=== PATIENT | female | born 1980 | race Caucasian/White ===

== ENCOUNTER → 2018-05-06 | Outpatient (CLI) | payer OTHER, SELFPAY ==
[2018-05-07 14:40] LABS: Chlamydia Trachomatis by PCR Negative (Negative); Neisserai gonorrhoeae by PCR Negative (Negative); Probe Check PASS; Sample Adequacy Control PASS; Specimen Processing Control PASS
[2018-05-10 12:34] LABS: HPV Reflexed? NOT INDICATED
== END | disposition home or self-care (01) ==
LOC: LABSPEC 05-07 09:35
PROVIDERS: Visit Provider Obstetrics & Gynecology
DX: Z12.4 Encounter for screening for malignant neoplasm of cervix (principal); Z11.3 Encounter for screening for infections with a predominantly sexual mode of transmission
CPT/HCPCS: 87491; 87591; 88175; G0145

== ENCOUNTER 2024-12-21 10:54 | Inpatient (IN) | payer OTHER, SELFPAY ==
[2024-12-21] VITALS (15 sets, daily range): BP systolic 169–224; BP diastolic 73–91; PULSE 75–105; RESP 12–24; TEMP 36.6–37.1; O2SAT 90–96; BMI 40.4
--- NOTE | 2024-12-21 11:26 | EKG12_ITS ---
Test Reason : SOB Blood Pressure : */* mmHG Vent. Rate : 106 BPM Atrial Rate : 106 BPM P-R Int : 166 ms QRS Dur : 86 ms QT Int : 352 ms P-R-T Axes : 60 64 -24 degrees QTcB Int : [address] & T wave abnormality, consider inferior ischemia Abnormal ECG Confirmed by Maco Platt ([id number]), fan mail editor PALOMO TORRES ([id number]) on 12/22/2024 10:51:23 AM Referred By: Confirmed By: Maco Platt
--- NOTE | 2024-12-21 11:26 | RAD_ITS ---
EXAM: XR Chest, 2 Views CLINICAL INDICATION: TECHNIQUE: Frontal and lateral views of the chest. COMPARISON: No relevant prior studies available. FINDINGS: LUNGS AND PLEURAL SPACES: Right middle lobe and lingula atelectasis or pneumonia. No pneumothorax. HEART: Unremarkable. No cardiomegaly. MEDIASTINUM: Unremarkable. Normal mediastinal contour. BONES/JOINTS: Unremarkable. No acute fracture. RAD/Chest PA and Lateral IMPRESSION: Right middle lobe and lingula atelectasis or pneumonia. Reading [facility] [place]
--- NOTE | 2024-12-21 11:27 | ED.VIS.DYS ---
HPI History of Present Illness Chief Complaint: Shortness of Breath Detail of Chief Complaint: Shortness of breath Informant: patient Narrative Narrative: Patient presents the emergency department complaint of shortness of breath and cough x 5 days. She was seen at urgent care where she was given a breathing treatment and had a chest x-ray and was told that she had some fluid on her lung and to come to the emergency department. Patient does not have a diagnosed history of CHF or coronary artery disease. She states that she knows she has high blood pressure but does not take any medications. She does complain of frequent exertional dyspnea. She denies recent travel or surgery. She denies any weight gain. Denies significant edema in her legs. Patient tells me she has had subjective fever at home. Cough is mostly nonproductive [facility] Medical History (Updated 12/21/24 @ 14:[address] Reese Montes DO) Cyst Home Medications ?Medication ?Instructions ?Recorded ?Last Taken ?Type thyro lf 1 - 2 cap PO DAILY THYROID 12/21/24 Unknown History SUPPLEMENT Allergy/AdvReac Type Severity Reaction Status Date / Time Penicillins AdvReac Severe Swelling Verified 12/21/24 08:58 Social History Smoking Status: Never smoker ROS ROS ED Review of Systems ROS Unobtainable: other Constitutional Constitutional ED: Reports lethargy; Denies chills, fever(s), sweats or weight loss Eyes Eyes: Denies blurry vision, change in vision or diplopia ENT ENT ED: Denies rhinorrhea or sore throat Cardiovascular Cardiovascular: Denies chest pain, orthopnea or racing heartbeat Respiratory/Chest Respiratory/Chest: Reports cough, dyspnea and dyspnea on exertion; Denies orthopnea or sputum Gastrointestinal Gastrointestinal: Denies abdominal pain, diarrhea, nausea or vomiting Genitourinary Genitourinary ED: Denies dysuria, hematuria or urinary frequency Musculoskeletal Musculoskeletal: Denies arthralgias, back pain, myalgias or neck pain Integumentary Denies abscess, Abrasions or rash Neurologic Neurologic: Denies headache(s) or weakness Psychiatric Psychiatric: Denies anxiety, depression or suicidal thoughts Endocrine Endocrinology: Denies polydipsia, polyphagia or polyuria Hematologic/Lymphatic Hematologic/Lymphatic: Denies easy bleeding, easy bruising or lymphadenopathy Allergic/Immunologic Allergic/Immunologic ED: Denies mouth swelling, tongue swelling or urticaria EXAM Physical Exam Const Vital Signs: 12/21/24 10:55 12/21/24 10:57 12/21/24 11:08 Temperature 98 F 98 F Temperature Source Temporal Oral Pulse Rate 105 H 105 H Respiratory Rate 20 H 19 H Respiratory Effort Short of Breath Blood Pressure 224/91 H 224/91 H Blood Pressure Mean 135 135 Pulse Ox 90 90 Oxygen Delivery Method Room Air Room Air Room Air Oxygen Flow Rate (L/min) 12/21/24 11:21 12/21/24 11:49 12/21/24 11:58 Temperature 98 F Temperature Source Oral Pulse Rate 96 92 Respiratory Rate 12 Respiratory Effort Blood Pressure 191/91 H 205/86 H Blood Pressure Mean 124 125 Pulse Ox 90 94 Oxygen Delivery Method Room Air Room Air Nasal Cannula Oxygen Flow Rate (L/min) 2 12/21/24 11:58 12/21/24 12:50 12/21/24 13:00 Temperature 98 F Temperature Source Oral Pulse Rate 83 Respiratory Rate 24 H Respiratory Effort Blood Pressure 205/86 H 182/85 H 183/84 H Blood Pressure Mean 125 117 117 Pulse Ox 95 Oxygen Delivery Method Nasal Cannula Oxygen Flow Rate (L/min) 3 Positive well nourished and well developed General Appearance ED: well developed and NAD HEENT Reports TM's clear and moist mucous membranes normocephalic and atraumatic; Negative for trauma or tenderness Tympanic Membrane ED: Yes TM's clear Eyes PERRL and EOMs intact bilaterally General Eye ED: Negative for pale conjunctiva or scleral icterus Neck no lymphadenopathy, supple and no JVD General: Negative for tenderness Chest Wall inspection of chest normal and palpation of chest normal Chest: Negative for tenderness Resp normal respiratory effort and clear to auscultation bilaterally Resp Narrative: Occasional coarse rhonchi left lower lobe and upper lobe. No conversational dyspnea. No accessory muscle use or retractions. Effort and Inspection: Negative for respiratory distress or pain with movement Auscultation: Negative for rhonchi, wheezes or diminished lung sounds Cardio regular rate, regular rhythm, S1 normal heart sound, S2 normal heart sound and no murmurs Peripheral Pulses: pulses 2+ throughout GI normal to inspection, nondistended, normoactive bowel sounds, soft to palpation, non-tender, non-distended and no masses Back/Spine no CVA tenderness and no thoracic nor lumbar tenderness Extremity normal to inspection General Extremety ED: Negative for edema General Extremity: Negative for edema Neuro oriented x3, CN's II-XII intact bilaterally, no sensory deficits noted and gait normal Sensorium / Orientation: awake, alert, oriented to person, oriented to place and oriented to time Motor Exam: strength 5/5 throughout and strength abnormal Psych mental status grossly normal Skin no rashes or lesions noted and no wounds MDM MDM MDM Narrative Medical decision making narrative: Patient presents to the emergency department shortness of breath for the last 5 days with cough and fever. Seen at urgent care and referred to the emergency department for concern about CHF possibly. Clinically suspect infectious etiology such as pneumonia versus viral etiology. She was hypoxic on arrival. Did have some wheezing. Patient was placed on nasal cannula O2 after she ambulated she was 87% on room air initially. Patient also found to be hypertensive and received labetalol IV. 20 mg. Blood cultures ordered. COVID flu and RSV testing was negative. CBC with differential showed a white count of 9.1 with hemoglobin 8.9 and platelet count of 298. Chemistries unremarkable. D-dimer elevated 2.25. Troponin normal at 11. BT [employer] was normal at 312. CTA of the chest obtained was negative for PE or dissection. She did have bilateral infiltrates. At this point patient was started on Levaquin IV. Case will be discussed with hospitalist to evaluate patient for admission Lab Data Attestation: I reviewed the patient's lab results. Labs: Laboratory Results - last 24 hr 12/21/24 12/21/24 12/21/24 11:15 11:35 13:30 WBC 9.1 RBC 4.40 Hgb 8.9 L Hct 30.1 L MCV 68.4 L MCH 20.2 L MCHC 29.6 L RDW Std Deviation 46.5 H RDW Coeff of Jatin 19.2 H Plt Count 298 MPV 9.9 Immature Gran % (Auto) 1.100 H Neut % (Auto) 67.0 Lymph % (Auto) 17.3 L Bland % (Auto) 12.4 H Eos % (Auto) 1.3 Baso % (Auto) 0.9 Absolute Neuts (auto) 6.1 Absolute Lymphs (auto) 1.57 Nucleated RBC % 0.2 D-Dimer Quant (PE/DVT) 2.25 H* Sodium 142 Potassium 2.8 L Chloride 102 Carbon Dioxide 25.2 Anion Gap 14 BUN 7 Creatinine 0.60 L Estim Creat Clear Calc 134.63 Est GFR (MDRD) Non-Af 112 BUN/Creatinine Ratio 12.0 Glucose 131 H Lactic Acid 1.2 Calcium 8.9 Troponin T High Sens 11 Troponin T Hi Sens 2 Hr 13 NT pro BNP II 312 Radiography Chest X-Ray - ED: 1 View Diagnostic Testin view chest x-ray obtained interpreted by myself as increased markings in the right lower lobe and left lower lobe suspect infiltrates. Official report from radiology pending. EKG Initial EKG: Attestation: I personally reviewed and interpreted this EKG as follows: Comments: Sinus rhythm with ventricular rate of [address] changes noted inferior and laterally. Discharge Plan Dx/Rx/DC Orders Clinical Impression: Pneumonia, Hypertension, Respiratory failure, Hypoxemia Disposition Disposition: Acute Care Hospital [facility]
[2024-12-21 11:35] LABS: Absolute Lymphocyte Count 1.57 X10^3/uL (0.83-4.51); Absolute Neutrophil Count 6.1 X10^3/uL (2.0-7.7); Basophil# 0.08 X10^3/uL; Basophil% 0.9 % (0-1); Eosinophil# 0.12 X10^3/uL; Eosinophils% 1.3 % (0-5); Hematocrit 30.1 % (37-47); Hemoglobin 8.9 g/dL (12.0-15.0); Lymphocyte # 1.57 X10^3/ul (0.83-4.51); Lymphocyte % 17.3 % (19-41); Mean Corp Hgb Conc 29.6 g/dL (32-36); Mean Corpuscular Hgb 20.2 pg (27.0-32.0); Mean Corpuscular Volume 68.4 fL (81-99); Mean Platelet Vol. 9.9 fl (6.2-12.0); Monocyte# 1.13 X10^3/uL; Monocyte% 12.4 % (0-10); NRBC Flagged by Analyzer 0.2 % (0-5); Neutrophil # 6.09 X10^3/uL (2.7-7.7); Platelet Count 298 K/mm3 (150-450); RBC Distribution Width CV 19.2 % (11.6-14.6); RBC Distribution Width SD 46.5 fl (35.1-43.9); White Blood Count 9.1 K/mm3 (4.4-11.0)
[2024-12-21 11:58] LABS: D-Dimer Quantitative (DVT/PE) 2.25 FEU/ug/m (0.27-0.49)
--- NOTE | 2024-12-21 12:01 | CT_ITS ---
PROCEDURE: CTA CHEST W/WO CONTRAST REASON FOR EXAM: Increasing shortness of breath. CHF. Pleural effusion. TECHNIQUE: CTA imaging of the chest with intravenous contrast. 3D reconstructions. CONTRAST: 100 cc of Isovue 370. COMPARISON: Comparison is made with prior chest radiograph done earlier in the day. FINDINGS: Hardware: None. Lymph nodes: No mediastinal hilar or axillary lymphadenopathy. Heart: Normal heart size. No pericardial effusion. RV/LV Diameter Ratio: N/A Thoracic Aorta: No thoracic aortic aneurysm or dissection. Pulmonary Vessels: No evidence of acute pulmonary emboli through the major subsegmental branches. Most Proximal Level of Embolus (if embolus present): N/A Lungs and Airways: Patchy bilateral alveolar infiltrates worse in the lung bases at the right lung base and lingular segment of the left upper lobe. Focal infiltrate also seen in the medial aspect of the right middle lobe. Tiny nodular ground-glass appearance is seen in the right upper lobe on axial image number 171 radiographic follow-up recommended. Pleura: No pleural effusion. No pneumothorax. Upper Abdomen: Status post cholecystectomy. Bones: Degenerative changes of the thoracic spine. CT/CTA Chest W/WO Contrast IMPRESSION: No evidence of pulmonary embolism. Bilateral patchy pulmonary infiltrates as described. Radiographic follow-up re commended. One or more dose reduction techniques were used (e.g., Automated exposure contr ol, adjustment of the mA and/or kV according to patient size, use of iterative reconstruction technique). Reading Location: [place] [id number]
[2024-12-21 12:24] LABS: Anion Gap 14 (5-15); BUN 7 mg/dL (4-19); Calcium,Total 8.9 mg/dL (7.6-11.0); Carbon Dioxide 25.2 mmol/L (21.0-32.0); Chloride 102 mmol/L (98-108); EST Glomerular Filtration Rate 112 (>60); Estimated Creatinine Clearance 134.63 ml/min (50-250); Glucose 131 mg/dL (70-99); Potassium 2.8 mmol/L (3.3-5.1); Pro- Brain NATRIURETIC PEPTIDE 312 pg/mL (<=450); Sodium Level 142 mmol/L (133-145); Troponin T High Sensitivity 11 ng/L (<=14)
[2024-12-21 12:49] LABS: Lactic Acid 1.2 mmol/L (0.0-2.0)
[2024-12-21] MEDS: Potassium Chloride Oral Tablet 20 MEQ 60 MEQ PO (13:59)
--- NOTE | 2024-12-21 13:59 | PCM.HP.STD ---
HPI - General General Date of Admission: 12/21/24 Date of Service: 12/21/24 Chief Complaint: Shortness of breath/cough HPI Narrative ROSALINO FERNANDEZ, is a 44 F who presented to the emergency department [facility] on 12/21/2024 with a chief complaint of shortness of breath and cough that has been ongoing for about 5 days. She states that her son had similar symptoms about 3 weeks ago but symptoms for her started just 5 days ago. Given her symptoms today she presented to urgent care and was felt to possibly have CHF based on chest x-ray that was done as an outpatient. Patient stated she knows she has high blood pressure but does not take any medication for this. She does complain of some exertional dyspnea, cough, fatigue and malaise and stated she did have some myalgias when symptoms initially presented. Her cough is currently not significantly productive of any sputum. She has had subjective fevers and chills at home. She does report she has heavy periods and it seems as if she is possibly perimenopausal. She had a 14-day period in October and is currently still menstruating for greater than 7 days at this point. She denies any rectal bleeding or melena. She denies any hematemesis, nausea, vomiting, or diarrhea. Vital signs on presentation showed a temperature of 98, heart rate was 105, respiratory 24, initial blood pressure was 224/91 with a repeat of 191/91 after medication and pulse ox was 90% on room air. Follow-up pulse ox showed decline in her oxygen saturation to 80% so she was placed on 2 L nasal cannula with improvement oxygen saturations to the mid 90s. CBC shows a normal white count but she does have a microcytic anemia with a hemoglobin of 8.9 and an MCV of 68.4. Platelet count is normal. She has a monocytosis on her differential. Chemistry panel showed significant hypokalemia with potassium of 2.8 but was otherwise unremarkable. We did obtain a magnesium level which was normal. Given her significant microcytic anemia iron studies were added on and are consistent with iron deficiency. Troponin was added on by the emergency department and was unremarkable. BNP is not elevated. TSH was normal. D-dimer was obtained and found to be 2.25 so she was sent to CTA for ruling out PE. CTA shows no evidence of PE but there are bilateral patchy infiltrates. EKG showed some ST depression that was close to a millimeter in the inferior lateral leads. This was done at a time when her blood pressure was markedly elevated. She is not having chest pain. In the emergency department she was treated for pneumonia with Levaquin and admitted to the medical floor for ongoing treatment. [facility] Medical History (Updated 12/21/24 @ 16:[address] Susan Chowdhury, DO) Hypertension Obesity Cyst Home Medications ?Medication ?Instructions ?Recorded ?Last Taken ?Type thyro lf 1 - 2 cap PO DAILY THYROID 12/21/24 Unknown History SUPPLEMENT Allergy/AdvReac Type Severity Reaction Status Date / Time Penicillins AdvReac Severe Swelling Verified 12/21/24 08:58 Family History no significant family his no significant family history Surgical History no surgical history no surgical history Social History (Updated 12/21/24 @ 16:[address] Susan Chowdhury, DO) household members: family housing: house current occupational status: unemployed Smoking Status: Never smoker alcohol intake: never substance use type: does not use ROS Constitutional Constitutional: Reports chills, fatigue, fever(s), malaise and weakness; Denies anorexia, change in weight, night sweats or other Eyes Eyes: Denies blurry vision, change in eye color, change in vision, discharge from eye(s), double vision, erythema, eye pain, loss of vision or other ENT HEENT: Denies abnormal hearing, dysphagia, ear pain, epistaxis, headache(s), hearing loss, nasal congestion, nasal discharge, post nasal drip, sinus pressure, sore throat or other Cardiovascular Cardiovascular: Denies chest pain, claudication, dyspnea on exertion, edema, lightheadedness, orthopnea, palpitations, paroxysmal nocturnal dyspnea, rapid heart rate, syncope or other Respiratory/Chest Respiratory/Chest: Reports cough, dyspnea and shortness of breath with exertion; Denies excessive phlegm production, hemoptysis, productive cough, shortness of breath at rest, wheezing or other Gastrointestinal Gastrointestinal: Denies abdominal pain, coffee ground emesis, constipation, diarrhea, dyspepsia, hematemesis, hematochezia, loose stools, melena, nausea, vomiting or other Genitourinary Genitourinary: Denies burning urination, difficulty urinating, dysuria, hematuria, nocturia, urinary frequency, urinary hesitancy, urinary incontinence, urinary urgency or other Musculoskeletal Musculoskeletal: Denies arthralgias, back pain, joint pain, joint stiffness, joint swelling, myalgias, neck pain or other Neurologic Neurologic: Denies abnormal gait, abnormal speech, confusion, disequilibrium, dizziness, focal weakness, headache(s), numbness, paresthesias, seizure-like activity, seizures, syncope, tingling, tremor(s) or other Psychiatric Psychiatric: Denies anxiety, depression, homicidal ideation, suicidal ideation or other Endocrine Endocrinology: Denies change in body appearance, cold intolerance, excessive sweating, heat intolerance, polydipsia, polyuria or other Hematologic/Lymphatic Hematologic/Lymphatic: Reports anemia; Denies easy bleeding, easy bruising, lymphadenopathy or other Allergic/Immunologic Allergic/Immunologic: Denies rhinitis, hives, eczemia, asthma or other Vital Signs Vital Signs Vital Signs: 12/21/24 10:55 12/21/24 10:57 12/21/24 11:08 Temperature 98 F 98 F Temperature Source Temporal Oral Pulse Rate 105 H 105 H Respiratory Rate 20 H 19 H Respiratory Effort Short of Breath Blood Pressure 224/91 H 224/91 H Blood Pressure Mean 135 135 Pulse Ox 90 90 Oxygen Delivery Method Room Air Room Air Room Air Oxygen Flow Rate (L/min) 12/21/24 11:21 12/21/24 11:49 12/21/24 11:58 Temperature 98 F Temperature Source Oral Pulse Rate 96 92 Respiratory Rate 12 Respiratory Effort Blood Pressure 191/91 H 205/86 H Blood Pressure Mean 124 125 Pulse Ox 90 94 Oxygen Delivery Method Room Air Room Air Nasal Cannula Oxygen Flow Rate (L/min) 2 12/21/24 11:58 12/21/24 12:50 12/21/24 13:00 Temperature 98 F Temperature Source Oral Pulse Rate 83 Respiratory Rate 24 H Respiratory Effort Blood Pressure 205/86 H 182/85 H 183/84 H Blood Pressure Mean 125 117 117 Pulse Ox 95 Oxygen Delivery Method Nasal Cannula Oxygen Flow Rate (L/min) 3 Weight Weight: 103.374 kg Body Mass Index (BMI) 40.4 Physical Exam Const alert, oriented x3, no apparent distress and well nourished; Negative for average body habitus or healthy appearing Constitutional Narrative: Middle-aged, Lexa, white female, sitting up in bed, morbidly obese, appears comfortable currently, not toxic but does appear ill, at bedside General Appearance: cooperative HEENT normocephalic, head/scalp atraumatic, hearing grossly normal bilaterally and moist oral mucous membranes HEENT Narrative: Mallampati 3, no thrush Eyes EOMs intact bilaterally; Negative for conjunctivae normal Eyes Narrative: Conjunctival are significantly pale bilaterally, no scleral icterus Neck no lymphadenopathy and supple Neck Narrative: Neck is short and thick, trachea midline, no thyroid enlargement noted Resp normal respiratory effort, no retractions, no use of accessory muscles and No clear to auscultation bilaterally Resp Narrative: Crackles at bilateral bases Auscultation: crackles Cardio regular rate, regular rhythm, S1 normal heart sound, S2 normal heart sound, no murmurs, no rub and no clicks; Negative for no gallops Cardio Narrative: S3 gallop present GI normal to inspection, nondistended, normoactive bowel sounds, soft to palpation and non-tender Extremity no clubbing, cyanosis or edema Extremity Narrative: Pedal pulses are 2+, negative Homans' sign bilaterally Neuro oriented x3, moves all extremities and no focal motor deficits Speech: speech normal Psych affect normal Psych Narrative: Eye contact is good, patient interacts appropriately Results Lab / Micro Data 12/21/24 11:15 12/21/24 11:15 Labs: Laboratory Results - last 24 hr 12/21/24 11:15: WBC 9.1, RBC 4.40, Hgb 8.9 L, Hct 30.1 L, MCV 68.4 L, MCH 20.2 L, MCHC 29.6 L, RDW Std Deviation 46.5 H, RDW Coeff of Jatin 19.2 H, Plt Count 298, MPV 9.9, Immature Gran % (Auto) 1.100 H, Neut % (Auto) 67.0, Lymph % (Auto) 17.3 L, Foard % (Auto) 12.4 H, Eos % (Auto) 1.3, Baso % (Auto) 0.9, Absolute Neuts (auto) 6.1, Absolute Lymphs (auto) 1.57, Nucleated RBC % 0.2, D-Dimer Quant (PE/DVT) 2.25 H*, Sodium 142, Potassium 2.8 L, Chloride 102, Carbon Dioxide 25.2, Anion Gap 14, BUN 7, Creatinine 0.60 L, Estim Creat Clear Calc 134.63, Est GFR (MDRD) Non-Af 112, BUN/Creatinine Ratio 12.0, Glucose 131 H, Calcium 8.9, Troponin T High Sens 11, NT pro BNP II 312 12/21/24 11:35: Lactic Acid 1.2 Assessment & Plan Assessment/Plan (1) Hypoxemia: (2) Pneumonia: (3) Hypertension: (4) Cough: (5) Hypokalemia: (6) Microcytic anemia: (7) Elevated d-dimer: (8) Iron deficiency: (9) Abnormal EKG: PLAN: Plan Acute hypoxemia secondary to pneumonia -Suspect With possible underlying viral etiology -Check respiratory viral panel -Check strep pneumo and Legionella antigens -Patient is not oxygen dependent at baseline currently requiring 2 L to keep sats greater than 88% -Wean as able -Will need home O2 eval prior to discharge -CTA of the chest is negative for PE however does show infiltrates -Levaquin initiated in the ED and will continue on admission--> day 1 of 7 -Check sputum culture -Check strep pneumo and Legionella antigens -Mucinex 1200 p.o. twice daily -Albuterol for pulmonary toilet every 6 hours -I-S -Acapella Microcytic anemia -Iron studies appear to be consistent with iron deficiency -Patient does report heavy periods and I suspect the etiology is consistent with this as she is perimenopausal -Will check stool for guaiac -Regardless of result patient should have outpatient follow-up with GI for colonoscopy as she is greater than 44 years old -IV iron 200 mg daily x 3 days to start today Hypokalemia -P.o. potassium replacement given with 60 mill equivalents -recheck in a.m. -Magnesium levels within normal limits Abnormal EKG -ST depression that is very close to about a millimeter in the inferior lateral leads -patient without any chest pain and troponins are unremarkable -Blood pressure was markedly elevated at the time Will repeat in a.m. as we improve her blood pressure control to reassess Hypertension -Patient's blood pressure is markedly elevated on presentation and she states that is fairly consistent as an outpatient -Start Coreg 12.5 mg p.o. twice daily -May need additional medication but will continue to watch -As needed hydralazine 10 mg every 6 hours for systolic pressure greater than 160 Elevated D-dimer -CTA is negative for PE -no lower extremity swelling or pain -likely related to acute infection with suspected bacterial pneumonia -Will hold on any further workup at this time Morbid obesity -BMI is 40.4 -Recommend weight loss -Complicates treatment, prognosis, outcomes DVT prophylaxis -Subcu Lovenox 40 twice daily CODE STATUS -DNR okay for short-term intubation per discussion on admission Charges/Coding Visit Charges Inpatient E&M: 61781 Init Hosp L3
[2024-12-21 14:14] LABS: Troponin T High Sens 2 HR 13 ng/L (<=14)
[2024-12-21] MEDS: levoFLOXacin IV 750 MG/150 ML BAG 100 MG IV (14:24)
[2024-12-21 15:25] LABS: Ferritin 22 ng/mL (22-378); Iron 16 ug/dL (50-170); Iron Binding Capacity,Total 346 ug/dL (250-450); Iron Binding Capacity,Unsat 330 ug/dL (228-428)
[2024-12-21 16:08] LABS: Troponin T High Sens 4 HR 14 ng/L (<=14)
[2024-12-21] MEDS: Carvedilol 12.5 MG Tablet PO (18:06)
[2024-12-21] MEDS: Sodium Ferric Gluconat/Sucrose 250 MG in 0.9% Normal Saline (250mL Bag) 250 ML 135 MG IV (18:46)
[2024-12-21] MEDS: 0.9% Saline Lock 10 ML Syringe IV ×2 (18:47→21:21)
[2024-12-21] MEDS: Acetaminophen 325 MG Tablet 650 MG PO (21:21)
[2024-12-21] MEDS: BENZOCAINE/MENTHOL 1 LOZENGE MUCOUS MEM (21:21)
[2024-12-21] MEDS: guaiFENesin 1,200 MG Tablet 1200 MG PO (21:21)
[2024-12-21] MEDS: Enoxaparin 40 MG/0.4 ML Syringe SC (21:22)
[2024-12-21] MEDS: Albuterol 2.5 MG/3 ML VIAL.NEB. INHALATION (21:50)
[2024-12-22] VITALS (24 sets, daily range): BP systolic 127–190; BP diastolic 63–94; PULSE 62–80; RESP 15–23; TEMP 36.7–37.1; O2SAT 85–100; BMI 39.2
[2024-12-22] MEDS: 0.9% Saline Lock 10 ML Syringe IV ×3 (01:23→23:04)
[2024-12-22] MEDS: hydrALAZINE 20 MG/ML Vial 10 MG IV ×2 (01:23→23:02)
[2024-12-22] MEDS: Albuterol 2.5 MG/3 ML VIAL.NEB. INHALATION (01:44)
--- NOTE | 2024-12-22 02:34 | NURSING ---
cps notified of airvo and abg order
[2024-12-22 03:38] LABS: Allen Test Positive; Base Excess 7 mmol/L (-2 to +2); Bicarbonate 30.1 mmol/L (22-26); Blood Gas Specimen Type ART; Comment Airvo 45L 80%; Mode Not entered; O2 Delivery Device CPAP; PO2 63 mmHG (75-100); SITE L Radial; SO2 94 % (95-99); Total Carbon Dioxide 31 mmol/L; pH 7.51 (7.35-7.45)
[2024-12-22 06:53] LABS: Absolute Lymphocyte Count 1.13 X10^3/uL (0.83-4.51); Absolute Neutrophil Count 6.9 X10^3/uL (2.0-7.7); Basophil# 0.06 X10^3/uL; Basophil% 0.7 % (0-1); Eosinophil# 0.07 X10^3/uL; Eosinophils% 0.8 % (0-5); Hematocrit 27.4 % (37-47); Lymphocyte # 1.13 X10^3/ul (0.83-4.51); Lymphocyte % 12.5 % (19-41); Mean Corp Hgb Conc 29.2 g/dL (32-36); Mean Corpuscular Volume 68.5 fL (81-99); Monocyte# 0.76 X10^3/uL; Monocyte% 8.4 % (0-10); NRBC Flagged by Analyzer 0.2 % (0-5); Neutrophil # 6.94 X10^3/uL (2.7-7.7); Neutrophil % 76.6 % (47-70); Platelet Count 265 K/mm3 (150-450); RBC Distribution Width CV 19.4 % (11.6-14.6); RBC Distribution Width SD 47.2 fl (35.1-43.9); White Blood Count 9.1 K/mm3 (4.4-11.0)
--- NOTE | 2024-12-22 07:00 | EKG12_ITS ---
Test Reason : Blood Pressure : */* mmHG Vent. Rate : 72 BPM Atrial Rate : 72 BPM P-R Int : 134 ms QRS Dur : 86 ms QT Int : 434 ms P-R-T Axes : 57 52 23 degrees QTcB Int : 475 ms Normal sinus rhythm Normal ECG When compared with ECG of 21-Dec-2024 11:33, MANUAL COMPARISON REQUIRED DATA IS UNCONFIRMED Confirmed by Maco Platt ([id number]), business editor PALOMO TORRES ([id number]) on 12/22/2024 1:18:02 PM Referred By: MARIANO Confirmed By: Maco Platt
[2024-12-22] MEDS: Ipratropium/Albuterol Sulfate 3 ML AMPUL.NEB INHALATION ×4 (07:40→19:56)
[2024-12-22 08:15] LABS: Magnesium 2.3 mg/dL (1.5-2.2); Phosphorus 2.7 mg/dL (2.7-4.5)
[2024-12-22 08:20] LABS: AST(SGOT) 25 U/L (<=31); Alanine Aminotransfer ALT/SGPT 20 U/L (<=34); Albumin, Serum 3.6 g/dL (3.5-5.0); Alkaline Phosphatase 85 U/L (35-104); Anion Gap 13 (5-15); BUN 9 mg/dL (4-19); BUN/Creat Ratio 17.4 RATIO (10-20); Calcium,Total 8.7 mg/dL (7.6-11.0); Carbon Dioxide 23.9 mmol/L (21.0-32.0); Chloride 103 mmol/L (98-108); Creatinine, Serum 0.54 mg/dL (0.70-1.20); EST Glomerular Filtration Rate 115 (>60); Estimated Creatinine Clearance 147.14 ml/min (50-250); Globulin 3.4 g/dL (2.2-4.2); Glucose 108 mg/dL (70-99); Potassium 3.5 mmol/L (3.3-5.1); Sodium Level 140 mmol/L (133-145); Total Bilirubin 0.38 mg/dL (0.00-1.30)
--- NOTE | 2024-12-22 08:45 | PN.HOSP_ITS ---
Reason for Visit Reason for Visit: Diagnoses Iron deficiency anemia, unspecified (12/21/24) Iron deficiency (12/21/24) Hypokalemia (12/21/24) Essential (primary) hypertension (12/21/24) Pneumonia, unspecified organism (12/21/24) Cough, unspecified (12/21/24) Hypoxemia (12/21/24) Other specified abnormal findings of blood chemistry (12/21/24) Abnormal electrocardiogram [ECG] [EKG] (12/21/24) Subjective Subjective Patient resting comfortably in bed on Airvo at 100%, reports her cough is improving and her breathing is slowly improving as well, does endorse being on her period and denies any blood in stool Objective Data Objective Data Vital Signs: Vital Signs Temp Pulse Resp BP Pulse Ox O2 Del Method O2 Flow Rate 98.2 F 62 18 127/63 H 100 Airvo 9 12/22/24 01:15 12/22/24 03:24 12/22/24 03:05 12/22/24 03:24 12/22/24 06:00 12/22/24 07:54 12/22/24 02:15 FiO2 75 12/22/24 03:05 Oxygen Flow Rate (L/min) 9 Oxygen Delivery Method Airvo Weight: 100.4 kg Body Mass Index (BMI) 39.2 Intake & Output: Intake and Output for Last 24 Hours 12/21/24 12/21/24 12/22/24 00:59 23:59 23:59 Intake Total 420 / 420 Balance 420 / 420 Lab / Micro Data 12/22/24 06:12 12/22/24 06:12 Labs: Laboratory Results - last 24 hr 12/21/24 11:15: WBC 9.1, RBC 4.40, Hgb 8.9 L, Hct 30.1 L, MCV 68.4 L, MCH 20.2 L , MCHC 29.6 L, RDW Std Deviation 46.5 H, RDW Coeff of Jatin 19.2 H, Plt Count 298, MPV 9.9, Immature Gran % (Auto) 1.100 H, Neut % (Auto) 67.0, Lymph % (Auto) 17.3 L, Morehouse % (Auto) 12.4 H, Eos % (Auto) 1.3, Baso % (Auto) 0.9, Absolute Neuts (auto) 6.1, Absolute Lymphs (auto) 1.57, Nucleated RBC % 0.2, D-Dimer Quant (PE/DVT) 2.25 H*, Sodium 142, Potassium 2.8 L, Chloride 102, Carbon Dioxide 25.2, Anion Gap 14, BUN 7, Creatinine 0.60 L, Estim Creat Clear Calc 134.63, Est GFR (MDRD) Non-Af 112, BUN/Creatinine Ratio 12.0, Glucose 131 H, Calcium 8.9, Magnesium 2.0, Iron 16 L, TIBC 346, Iron Saturation 5.0 L, Unsaturated IBC 330, Ferritin 22, Troponin T High Sens 11, NT pro BNP II 312, TSH 3.840 12/21/24 11:35: Lactic Acid 1.2 12/21/24 13:30: Troponin T Hi Sens 2 Hr 13 12/21/24 15:32: Troponin T Hi Sens 4Hr 14 12/22/24 06:12: WBC 9.1, RBC 4.00 L, Hgb 8.0 L, Hct 27.4 L, MCV 68.5 L, MCH 20.0 L, MCHC 29.2 L, RDW Std Deviation 47.2 H, RDW Coeff of Jatin 19.4 H, Plt Count 265, MPV 10.0, Immature Gran % (Auto) 1.000 H, Neut % (Auto) 76.6 H, Lymph % (Auto) 12.5 L, Morehouse % (Auto) 8.4, Eos % (Auto) 0.8, Baso % (Auto) 0.7, Absolute Neuts (auto) 6.9, Absolute Lymphs (auto) 1.13, Nucleated RBC % 0.2, Sodium 140, Potassium 3.5, Chloride 103, Carbon Dioxide 23.9, Anion Gap 13, BUN 9, C reatinine 0.54 L, Estim Creat Clear Calc 147.14, Est GFR (MDRD) Non-Af 115, BUN/Creatinine Ratio 17.4, Glucose 108 H, Calcium 8.7, Phosphorus 2.7, Magnesium 2.3 H, Total Bilirubin 0.38, AST 25, ALT 20, Alkaline Phosphatase 85, Total Protein 7.0, Albumin 3.6, Globulin 3.4, Albumin/Globulin Ratio 1.0 Micro: Microbiology 12/21/24 17:35 Mucosa - Nasopharyngeal Respiratory Panel (PCR) - Final 12/21/24 16:30 Urine, Clean Catch Legionella Antigen - Final 12/21/24 16:30 Urine, Clean Catch Streptococcus pneumoniae Antigen (M - Final 12/21/24 11:40 Mucosa - Nose SARS-CoV-2, Influenza & RSV (PCR) - Final ABG Data ABG results: ABG 12/22/24 03:35 Specimen Type ART Sample Site L Radial pH 7.51 H Bicarbonate Actual 30.1 H Total CO2 31 Base Excess 7 H O2 Saturation 94 L ABG pCO2 38.0 ABG pO2 63 L Richard Test Positive O2 Delivery Device CPAP Vent Mode Not entered Clinical Comments Airvo 45L 80% Radiography Diagnostic Testing: Radiology Impression Chest X-Ray 12/21/24 11:26 IMPRESSION: Right middle lobe and lingula atelectasis or pneumonia. Reading Location: [facility] Chest CTA 12/21/24 12:01 IMPRESSION: No evidence of pulmonary embolism. Bilateral patchy pulmonary infiltrates as described. Radiographic follow-up recommended. One or more dose reduction techniques were used (e.g., Automated exposure control, adjustment of the mA and/or kV according to patient size, use of iterative reconstruction technique). Reading Location: [facility] Physical Exam Narrative General: Alert, oriented, no apparent distress HEENT: Atraumatic, normocephalic Eyes: Anicteric, normal conjunctiva, extraocular movements grossly intact Neck: Supple Respiratory: Slight increased respiratory effort, fair airflow throughout Cardiovascular: Regular rate and rhythm GI: Soft, nontender, nondistended Extremities: No edema Musculoskeletal: Moving all extremities Neuro: No overt focal neurological deficits Skin: No rashes appreciated Psych: Cooperative Assessment & Plan Assessment/Plan (1) Hypoxemia: (2) Pneumonia: PLAN: Plan # Hypoxia secondary to pneumonia -Imaging: CTA in ED with no PE but did show infiltrates?follow-up recommended -Scheduled albuterol with albuterol as needed-> will change to DuoNebs given patient's further decompensation -Sputum culture if able, COVID respiratory panel is negative -Urine antigens negative -Mucinex, I/S -Levaquin initiated in the ED and this was continued -Patient was initially on 2 L O2, and subsequently required high flow and then Airvo, now being weaned back down but is improving #HTN urgency -Patient with blood pressure up to 224/91, she was started on Coreg 12.5 twice daily and hydralazine 10 mg IV every 6 as needed -Most recent BP 127/63 but that is the outlier, will monitor and adjust as needed # Microcytic anemia -Hemoglobin 8.9 on presentation, today 8.0 -Fecal occult ordered, patient hesitant about this and does report she is still on her period so she has ongoing blood loss -Does report heavy menstrual cycles which may be underlying etiology especially given she is still on this, does not get routine labs checked so unclear what her baseline is -Patient hesitant about fecal occult, discussed that we can repeat hemoglobin in the morning but if there is any further downtrend we will need to get the fecal occult and determine GI workup inpatient versus outpatient and patient agreeable to that plan, she denies any blood in stool, no abdominal pain or other current abdominal complaints. -Continue IV iron #Hypokalemia?resolved -This was replaced and has resolved #DVT ppx: SCDs Arcelia Gipson MD Time spent in the patient's overall evaluation, decision-making process, review of diagnostic data, adjustment of management, discussion with other providers, nursing and ancillary staff involved in patient's care documentation, 40 Minutes Charges/Coding Visit Charges Inpatient E&M: 24812 Subs Hosp L2
[2024-12-22] MEDS: Carvedilol 12.5 MG Tablet PO ×2 (09:51→16:13)
[2024-12-22] MEDS: guaiFENesin 600 MG Tablet 1200 MG PO ×2 (09:52→21:13)
[2024-12-22] MEDS: levoFLOXacin IV 750 MG/150 ML BAG 100 MG IV (09:52)
[2024-12-22] MEDS: Sodium Ferric Gluconat/Sucrose 250 MG in 0.9% Normal Saline (250mL Bag) 250 ML 135 MG IV (12:23)
--- NOTE | 2024-12-22 13:28 | CASEMGMT ---
PABLO ALDRICH Assessment: Face to Face with pt for initial transition planning/care coordination assessment. PABLO ALDRICH introduced self and role at [facility], pt voices understanding and consents to assessment. Pt is A&O x4 and answers all questions appropriately at this time. Pt sitting up in bed on airvo in no distress. Care providers, pharmacy, and demographics verified/updated. Admitting Dx: pna Strata Score: 1 PCP:John Specialists:Denies Preferred Pharmacy:[facility] Insurance: [employer] Prescription Benefit: no LNOK: Richard Rosa, Living Arrangements: Pt lives with and son in a two story home with a couple of steps to enter. Pt reports she is I in ADL/IADLs and denies concerns at home. 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 DME:Denies HHC/SNF: Denies hx of Pt states no concerns with going home at time of dc. Discussed oxygen should pt need to go home with oxygen. Provided pt with a verbal list of local DME companies, pt declined to choose. Pt wants to discuss with her mother. Made pt aware that should she need oxygen at dc, we will discuss further. Pt states no further concerns/needs. CM to follow. Advised pt to ask CM if any further questions/concerns/needs arise, voices understanding. Pt Goal: Home Plan: Home, follow for oxygen Alberto SHAH CM
--- NOTE | 2024-12-22 15:46 | NURSING ---
Pt weaned off of airvo by respiratory therapy. Pt currently on 2L NC. Will monitor.
[2024-12-23] VITALS (10 sets, daily range): BP systolic 160–186; BP diastolic 70–80; PULSE 74–79; RESP 14–18; TEMP 36.4–36.7; O2SAT 90–95; BMI 39.5
[2024-12-23 07:15] LABS: Hematocrit 28.4 % (37-47); Hemoglobin 8.3 g/dL (12.0-15.0); Mean Corp Hgb Conc 29.2 g/dL (32-36); Mean Corpuscular Hgb 20.1 pg (27.0-32.0); Mean Corpuscular Volume 68.9 fL (81-99); Platelet Count 368 K/mm3 (150-450); RBC Distribution Width CV 19.7 % (11.6-14.6); RBC Distribution Width SD 46.8 fl (35.1-43.9); Red Blood Count 4.12 M/mm3 (4.2-5.4); White Blood Count 10.2 K/mm3 (4.4-11.0)
[2024-12-23] MEDS: Ipratropium/Albuterol Sulfate 3 ML AMPUL.NEB INHALATION ×2 (07:56→11:41)
--- NOTE | 2024-12-23 08:16 | PCM.PN.HOSP ---
Reason for Visit Reason for Visit: Diagnoses Iron deficiency anemia, unspecified (12/21/24) Iron deficiency (12/21/24) Hypokalemia (12/21/24) Essential (primary) hypertension (12/21/24) Pneumonia, unspecified organism (12/21/24) Cough, unspecified (12/21/24) Hypoxemia (12/21/24) Other specified abnormal findings of blood chemistry (12/21/24) Abnormal electrocardiogram [ECG] [EKG] (12/21/24) Objective Data Objective Data Vital Signs: Vital Signs Temp Pulse Resp BP Pulse Ox O2 Del Method O2 Flow Rate 98.1 F 77 15 180/70 H 91 Room Air 2 12/23/24 03:16 12/23/24 03:16 12/23/24 03:16 12/23/24 03:16 12/23/24 03:16 12/23/24 03:16 12/22/24 20:00 FiO2 49 12/22/24 15:23 Oxygen Flow Rate (L/min) 2 Oxygen Delivery Method Room Air Weight: 101.3 kg Body Mass Index (BMI) 39.5 Intake & Output: Intake and Output for Last 24 Hours 12/21/24 12/22/24 12/23/24 23:59 23:59 23:59 Intake Total 420 / 420 420 / 420 Balance 420 / 420 420 / 420 Lab / Micro Data 12/23/24 06:43 12/22/24 06:12 Labs: Laboratory Results - last 24 hr 12/22/24 06:12: Sodium 140, Potassium 3.5, Chloride 103, Carbon Dioxide 23.9, Anion Gap 13, BUN 9, Creatinine 0.54 L, Estim Creat Clear Calc 147.14, Est GFR (MDRD) Non-Af 115, BUN/Creatinine Ratio 17.4, Glucose 108 H, Calcium 8.7, Total Bilirubin 0.38, AST 25, ALT 20, Alkaline Phosphatase 85, Total Protein 7.0, Albumin 3.6, Globulin 3.4, Albumin/Globulin Ratio 1.0 12/23/24 06:43: WBC 10.2, RBC 4.12 L, Hgb 8.3 L, Hct 28.4 L, MCV 68.9 L, MCH 20.1 L, MCHC 29.2 L, RDW Std Deviation 46.8 H, RDW Coeff of Jatin 19.7 H, Plt Count 368, MPV 10.0 Micro: Microbiology 12/23/24 05:38 Stool Stool Occult Blood (MARYANN) - Final 12/21/24 17:35 Mucosa - Nasopharyngeal Respiratory Panel (PCR) - Final 12/21/24 16:30 Urine, Clean Catch Legionella Antigen - Final 12/21/24 16:30 Urine, Clean Catch Streptococcus pneumoniae Antigen (M - Final 12/21/24 11:40 Mucosa - Nose SARS-CoV-2, Influenza & RSV (PCR) - Final Assessment & Plan Assessment/Plan (1) Hypoxemia: (2) Pneumonia: PLAN: Plan # Hypoxia secondary to pneumonia -Imaging: CTA in ED with no PE but did show infiltrates?follow-up recommended -Scheduled albuterol with albuterol as needed-> will change to DuoNebs given patient's further decompensation -Sputum culture if able, COVID respiratory panel is negative -Urine antigens negative -Mucinex, I/S -Levaquin initiated in the ED and this was continued -Patient was initially on 2 L O2, and subsequently required high flow and then Airvo, now being weaned back down but is improving -12/23: Patient weaned to room air, is presently 91%, continue antibiotics and current management, if patient continues to improve can attempt to ambulate tomorrow and potential DC if patient stable #HTN urgency -Patient with blood pressure up to 224/91, she was started on Coreg 12.5 twice daily and hydralazine 10 mg IV every 6 as needed -Most recent BP 127/63 but that is the outlier, will monitor and adjust as needed -12/23: Blood pressure 180s over 70s, given the significant elevation of blood pressure losartan added # Microcytic anemia -Hemoglobin 8.9 on presentation, today 8.0 -Fecal occult ordered, patient hesitant about this and does report she is still on her period so she has ongoing blood loss -Does report heavy menstrual cycles which may be underlying etiology especially given she is still on this, does not get routine labs checked so unclear what her baseline is -Patient hesitant about fecal occult, discussed that we can repeat hemoglobin in the morning but if there is any further downtrend we will need to get the fecal occult and determine GI workup inpatient versus outpatient and patient agreeable to that plan, she denies any blood in stool, no abdominal pain or other current abdominal complaints. -Continue IV iron -3/12: FOBT negative, hemoglobin stable, will need outpatient follow-up with the PCP for further monitoring #Hypokalemia?resolved -This was replaced and has resolved -12/23: Potassium 3.4, slightly low so we will give replacement #DVT ppx: SCDs Arcelia Gipson MD Time spent in the patient's overall evaluation, decision-making process, review of diagnostic data, adjustment of management, discussion with other providers, nursing and ancillary staff involved in patient's care documentation, 36 Minutes
[2024-12-23 08:17] LABS: Anion Gap 13 (5-15); BUN 8 mg/dL (4-19); BUN/Creat Ratio 15.4 RATIO (10-20); Carbon Dioxide 23.3 mmol/L (21.0-32.0); Chloride 105 mmol/L (98-108); Creatinine, Serum 0.51 mg/dL (0.70-1.20); EST Glomerular Filtration Rate 116 (>60); Estimated Creatinine Clearance 156.58 ml/min (50-250); Glucose 106 mg/dL (70-99); Potassium 3.4 mmol/L (3.3-5.1); Sodium Level 140 mmol/L (133-145)
[2024-12-23] MEDS: Carvedilol 12.5 MG Tablet PO (08:41)
[2024-12-23] MEDS: Potassium Chloride Oral Tablet 20 MEQ 40 MEQ PO (09:12)
[2024-12-23] MEDS: Losartan Potassium 25 MG Tablet PO (09:14)
[2024-12-23] MEDS: Acetaminophen 325 MG Tablet 650 MG PO (09:14)
[2024-12-23] MEDS: Sodium Ferric Gluconat/Sucrose 250 MG in 0.9% Normal Saline (250mL Bag) 250 ML 135 MG IV (09:22)
[2024-12-23] MEDS: 0.9% Saline Lock 10 ML Syringe IV (09:22)
[2024-12-23] MEDS: guaiFENesin 600 MG Tablet 1200 MG PO (10:29)
[2024-12-23] MEDS: levoFLOXacin IV 750 MG/150 ML BAG 100 MG IV (13:03)
[2024-12-23] MEDS: 0.9% Normal Saline (100mL Bag) 100 ML 15 ML IV (13:15)
--- NOTE | 2024-12-23 13:55 | CASEMGMT ---
Pt does not qualify for home oxygen. Updated hospitalist.
--- NOTE | 2024-12-23 14:11 | PCM.DC.SUM ---
Providers Date of Admission: 12/21/24 Date of Discharge: 12/23/24 Primary Care Physician: Dr. Ismael Lopez MD Reason For Visit: PNEUMONIA Diagnosis Discharge Diagnosis (1) Hypoxemia: Status: Acute Code(s): R09.02 - Hypoxemia (2) Pneumonia: Status: Acute Code(s): J18.9 - Pneumonia, unspecified organism Plan # Hypoxia secondary to pneumonia #HTN urgency # Microcytic anemia- suspect secondary to gyn physician losses #Hypokalemia?resolved Medications at Discharge Home Medications thyro lf 1 - 2 cap PO DAILY THYROID SUPPLEMENT 12/21/24 carvedilol 12.5 mg tablet 12.5 mg PO BIDCM 30 days #60 tabs 12/23/24 levofloxacin 750 mg tablet 750 mg PO DAILY 6 days #6 tabs 12/23/24 losartan 25 mg tablet 25 mg PO DAILY 30 days #30 tabs 12/23/24 Hospital Course Summary of Care Provided Minutes Spent on Discharge: 25 Hospital Course: 44-year-old female history of hypertension and obesity presented to [facility] ED 12/21/2024 with shortness of breath and cough. Due to an elevated D-dimer she had a CTA which ruled out PE but did show bilateral patchy infiltrates. She is found to be hypoxic requiring 2 L to keep her O2 sat greater than 88 and hospitalist contacted for admission. She was started on Levaquin, initially patient decompensated overnight requiring Airvo however by the next day was already improving and the following day was completely off of oxygen and doing much better and requesting discharge home, she was ambulated for O2 and O2 was not required. Of note she also had hypertensive urgency and was started on carvedilol, due to persistent blood pressures in the 180s losartan was also added to the regimen was advised to follow-up with her primary care physician. She did have microcytic anemia and was given iron transfusions, hemoglobin stable here and she reports she is on her. Does have heavy periods, we have no baseline hemoglobin to assess if this is changed but FOBT was negative and given stability there is no need for further inpatient workup. Patient advised to follow-up with PCP for further monitoring and/or workup. On day of discharge patient is feeling better, still some shortness of breath and cough but significantly improved and patient comfortable with discharge home. Discharge instructions as follows: -You will be discharged on carvedilol and losartan for your high blood pressure, would recommend obtaining a blood pressure monitor so that you can monitor this at home. Will be important to follow-up with your primary care physician on discharge for further monitoring and adjustment -You will also be discharged on another 6 days of Levaquin for pneumonia -Recommend following up with your outpatient provider to discuss your low hemoglobin levels, these were stable during your admission but may benefit from further workup on an outpatient basis -Please call your primary care provider's office upon discharge to schedule a hospital follow up within 1 week. -For any concerning signs or symptoms please call 911 or proceed to the nearest emergency department Physical Exam Narrative General: Alert, oriented, no apparent distress HEENT: Atraumatic, normocephalic Eyes: Anicteric, normal conjunctiva, extraocular movements grossly intact Neck: Supple Respiratory: Good air movement, normal respiratory effort, did have some crackles at the bases Cardiovascular: Regular rate and rhythm GI: Soft, nontender, nondistended Extremities: No edema Musculoskeletal: Moving all extremities Neuro: No overt focal neurological deficits Skin: No rashes appreciated Psych: Cooperative Weight / BMI Weight Weight: 101.3 kg Body Mass Index (BMI) 39.5 ABG / Lab / Microbiology Data 12/23/24 06:43 12/23/24 06:43 Laboratory: Laboratory Results - last 24 hr 12/23/24 06:43: WBC 10.2, RBC 4.12 L, Hgb 8.3 L, Hct 28.4 L, MCV 68.9 L, MCH 20.1 L, MCHC 29.2 L, RDW Std Deviation 46.8 H, RDW Coeff of Jatin 19.7 H, Plt Count 368, MPV 10.0, Sodium 140, Potassium 3.4, Chloride 105, Carbon Dioxide 23.3, Anion Gap 13, BUN 8, Creatinine 0.51 L, Estim Creat Clear Calc 156.58, Est GFR (MDRD) Non-Af 116, BUN/Creatinine Ratio 15.4, Glucose 106 H, Calcium 9.0 Microbiology: Microbiology 12/23/24 05:38 Stool Stool Occult Blood (MARYANN) - Final 12/21/24 17:35 Mucosa - Nasopharyngeal Respiratory Panel (PCR) - Final 12/21/24 16:30 Urine, Clean Catch Legionella Antigen - Final 12/21/24 16:30 Urine, Clean Catch Streptococcus pneumoniae Antigen (M - Final 12/21/24 11:40 Mucosa - Nose SARS-CoV-2, Influenza & RSV (PCR) - Final D/C Instructions Discharge Diet: - (DASH diet) DC O2, CPAP, BIPAP Needs PSN CPAP & BiPAP: BiPAP & CPAP Settings per PSN Mode AIRVO 12/22/24 13:30 Fraction of Inspired Oxygen ( 49 12/22/24 15:23 FIO2) Total Flow Rate 45 12/22/24 13:30 Home O2 Discharge instructions: No Meaningful Use Info Meaningful Use Meaningful Use Diagnoses (Choose all that apply): None applicable Ischemic Stroke Statin Dosing Therapy Reference: STATIN DOSE THERAPY REFERENCE: * Patients > 75 years receive moderate or high dose statin therapy. * Patients 75 years or YOUNGER should receive HIGH intensity statin dose unless contraindicated. You will be required to document reason for non-treatment if statin daily dose does not meet guidelines. HIGH DOSE STATIN THERAPY DAILY Atorvastatin > than or = to 40 mg Rosuvastatin > than or = to 20 mg Amlodipine + Atorvastatin > than or = to 2.5/40 mg Ezetimibe + Simvastatin 10/80 mg Simvastatin 80mg Discharge Plan Admission Admit Date/Time: 12/21/24 14:41 Primary Reason for Your Visit: Shortness of breath Attending Provider: Arcelia Gipson Primary Care Provider: Ismael Lopez Consulting Providers: Susan Chowdhury Instructions Patient Instructions: Controlling High Blood Pressure, DASH Plan Eat Heart Healthy Food, ED High Blood Pressure Hypertension Additional Instructions / Restrictions: DISCHARGE INSTRUCTIONS PLEASE READ *Please take this with you to your next doctors appointment* -You will be discharged on carvedilol and losartan for your high blood pressure, would recommend obtaining a blood pressure monitor so that you can monitor this at home. Will be important to follow-up with your primary care physician on discharge for further monitoring and adjustment -You will also be discharged on another 6 days of Levaquin for pneumonia -Recommend following up with your outpatient provider to discuss your low hemoglobin levels, these were stable during your admission but may benefit from further workup on an outpatient basis -Please call your primary care provider's office upon discharge to schedule a hospital follow up within 1 week. -For any concerning signs or symptoms please call 911 or proceed to the nearest emergency department Discharge Orders/Prescriptions Prescriptions: New carvedilol 12.5 mg Tablet 12.5 mg PO BIDCM 30 Days Qty: 60 0RF levofloxacin 750 mg tablet 750 mg PO DAILY 6 Days Qty: 6 0RF losartan 25 mg Tablet 25 mg PO DAILY 30 Days Qty: 30 0RF Continued thyro lf capsule 1 - 2 cap PO DAILY Rx Instructions: IODINE, ZINC, SELENIUM, ASHWAGANDA, CHROMIUM Referrals / Follow Up: Ismael Lopez MD [Primary Care Provider] - Within 1 Week Disposition Disposition (needs filled in before D/C Order can be placed): Home, Self Care Charges/Coding Visit Charges Inpatient E&M: 31427 Disch Hosp
--- NOTE | 2024-12-23 15:38 | PHA.DC.MC.R ---
Pharmacy [facility] Pharmacy Service has performed discharge medication reconciliation and counseling for this patient. 1. CARVEDILOL 12.5MG PO BID 2. LOSARTAN 25MG PO DAILY 3. LEVOFLOXACIN 750MG PO DAILY X 6 DAYS The patient's discharge medication list was reviewed for discrepancies and discrepancies were resolved. The patient was counseled on the following discharge medications and changes in medications for homegoing were reviewed. The Reason for Use, instructions for use, and potential side effects were reviewed for all new medications. The patient's questions regarding all of their medications were answered. The patient was able to verbally demonstrate an understanding of their discharge medications. Medications at Discharge Home Medications thyro lf 1 - 2 cap PO DAILY THYROID SUPPLEMENT 12/21/24 carvedilol 12.5 mg tablet 12.5 mg PO BIDCM 30 days #60 tabs 12/23/24 levofloxacin 750 mg tablet 750 mg PO DAILY 6 days #6 tabs 12/23/24 losartan 25 mg tablet 25 mg PO DAILY 30 days #30 tabs 12/23/24
--- NOTE | 2024-12-23 16:31 | NURSING ---
All documentation by nursing clerk Velma العلي reviewed by practical nursing instructor Belen RANKINN, RN.
== END 2024-12-23 16:43 | disposition home or self-care (01) | DRG 194 ==
LOC: ED 13:40 → MS3 15:17
PROVIDERS: Admitting Provider Internal Medicine; Emergency Provider Emergency Medicine; PCP Family Medicine; Visit Provider Internal Medicine
DX: J15.9 Unspecified bacterial pneumonia (principal); Z68.41 Body mass index [BMI] 40.0-44.9, adult; I16.0 Hypertensive urgency; Z66 Do not resuscitate; D50.0 Iron deficiency anemia secondary to blood loss (chronic); E66.01 Morbid (severe) obesity due to excess calories; I10 Essential (primary) hypertension; E87.6 Hypokalemia; N92.4 Excessive bleeding in the premenopausal period; R79.1 Abnormal coagulation profile; R94.31 Abnormal electrocardiogram [ECG] [EKG]; R09.02 Hypoxemia
CPT/HCPCS: 36415; 36600; 71046; 71275; 80048; 80053; 82274; 82728; 82803; 83540; 83550; 83605; 83735; 83880; 84100; 84443; 84484; 85025; 85027; 85379; 87040; 87449; 87631; 87633; 93005; 94640; 94660; 94668; 94762; 99252; 99285; Q9967; A4216; G0463; J2916